=== PATIENT | male | born 1940 | race Caucasian/White ===

== ENCOUNTER 2017-08-18 13:11 | Outpatient (CLI) | payer MEDICARE, BC ==
[2015-07-04 19:07] VITALS: O2SAT 95
== END 2017-08-18 13:12 | disposition home or self-care (01) | DRG 556 ==
LOC: CONVCARE 13:11
PROVIDERS: ATTEND Orthopaedic Surgery
DX: M25.561 Pain in right knee (principal)
CPT/HCPCS: 73564